=== PATIENT | female | born 2000 | race Caucasian/White ===

== ENCOUNTER → 2022-01-26 11:19 | Outpatient (CLI) | payer OTHER, SELFPAY ==
--- NOTE | ~2022-01-26 | CT_ITS ---
EXAMINATION: CTA brain DATE: 01/26/2022 11:56 INDICATION: Brain aneurysm follow-up. Chronic migraine headache. TECHNIQUE: Computed tomographic angiography (CTA) of the head was performed without and with 100 mL O mnipaque-350 intravenous contrast. Automated exposure control and iterative reconstruction technique were employed. The dose-length product was 1163.37 mGy-cm. Maximum intensity projection 3D reconstru ctions were created. Volume-rendered 3D reconstructions of the intracranial arteries were created by the technologist on a separate workstation. COMPARISON: None. FINDINGS: There is no intracranial hemorrhage, acute infarction, or abnormal intracranial mass lesion . The ventricles are normal in size. The orbits are normal. There is mild mucosal thickening in the p aranasal sinuses. 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 The mastoid air cells are normal. The v ertebral arteries are codominant. There is no significant stenosis of basilar artery or the posterior cerebral arteries. There is no significant stenosis of the intracranial internal carotid arteries or anterior or middle cerebral arteries. Anterior communicating artery is normal. IMPRESSION: 1. Normal brain. No aneurysm. Reviewed, dictated and finalized at [facility]. DPIPE TENDER
== END ==
DX: I67.1 Cerebral aneurysm, nonruptured (principal)
CPT/HCPCS: 70496; Q9967

== ENCOUNTER → 2023-01-02 11:15 | Outpatient (CLI) | payer OTHER, SELFPAY ==
--- NOTE | ~2023-01-02 | CT_ITS ---
EXAMINATION: CT sinus wo con DATE: 01/02/2023 11:28 INDICATION: Osteoma of the paranasal sinuses TECHNIQUE: Computed tomography (CT) of the paranasal sinuses was performed without contrast. Iterativ e reconstruction technique was employed. Exam dose: 279.12 mGy-cm total exam DLP. COMPARISON: None FINDINGS: There is leftward deviation of the nasal septum. There is prudence bullosa of the right middle nasal turbinate. There is symmetric moderately prominent soft tissue swelling of the nasal turbinates bilaterally. The ostiomeatal units are patent bilaterally. 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 Small probable mucus retention cyst along the lateral wall of the right maxillary sinus. The paranasa l sinuses otherwise are normally developed and aerated. The mastoid air cells are normally developed and aerated. Middle and inner ear apparatus appear normal bilaterally. 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 Reviewed, dictated and finalized at [facility].
== END ==
PROVIDERS: PCP Otolaryngology; Visit Provider Otolaryngology
DX: D16.4 Benign neoplasm of bones of skull and face (principal); J34.2 Deviated nasal septum
CPT/HCPCS: 70486

== ENCOUNTER 2023-01-14 18:52 | Emergency (ER) | payer OTHER, SELFPAY ==
[2023-01-14 19:00] VITALS: BP 133/71; PULSE 61; RESP 16; TEMP 37; O2SAT 99
--- NOTE | 2023-01-14 19:15 | ED.URI ---
HPI - URI/Sore Throat General Chief Complaint: Upper Respiratory Infection Stated Complaint: sore throat History of Present Illness HPI Narrative: 22-year-old female presented for complaint of sore throat since yesterday. States she saw white patches on tonsils today. Denies any associated symptoms. Not Taking anything for symptoms. Related Data Home Medications Medication Instructions Recorded Confirmed methylphenidate HCl 27 mg 27 mg PO QAM 09/13/21 01/14/23 tablet,extended release 24 hr escitalopram oxalate 5 mg tablet 5 mg PO DAILY 01/14/23 01/14/23 Allergies Allergy/AdvReac Type Severity Reaction Status Date / Time clavulanic acid Allergy Mild Rash Unverified 01/14/23 19:05 Penicillins Allergy Mild Rash Unverified 01/14/23 19:05 BETALACTAMASEIN Allergy Mild Rash Uncoded 01/14/23 19:05 Review of Systems Review of Systems: CONSTITUTIONAL: Denies body aches, fever, chills, or sweats. EYES: Denies visual changes, redness, or discharge. ENT: Reports sore throat Denies rhinorrhea, congestion, or otalgia. CARDIOVASCULAR: Denies chest pain, palpitations, or edema. RESPIRATORY: Denies dyspnea. GASTROINTESTINAL: Denies abdominal pain, nausea, vomiting, or diarrhea. SKIN: Denies rash, itching, or wounds. MUSCULOSKELETAL: Denies back pain, joint pain, or myalgia. NEUROLOGIC: Denies headache PMFSH Past Medical History Medical History Migraine Family History Family History Mother Hypertension Grandparent Cerebrovascular accident Lung cancer Bladder cancer Social History Social History Smoking status: Never smoker Second hand tobacco smoke exposure: No Alcohol intake: never Substance use: unknown Exam Narrative: GENERAL: well-appearing, no acute distress. EYES: conjunctivae clear ENT: Mucous membranes moist. TM pearly steele with normal light reflex bilaterally; no tragal tenderness. Oropharynx erythematous Tonsils enlarged 1+ with exudate. No drooling, no hoarseness, no trismus, uvula midline. No tripod positioning, hot potato voice, or soft palate swelling. NECK: Supple. No lymphadenopathy CHEST: Clear to auscultation, breath sounds equal. No respiratory distress, speaks in full sentences. HEART: Regular rate and rhythm. No murmur heard. SKIN: Warm, dry, no rash. NEURO: Alert and oriented x3. Course Course Emergency Course: Patient is aware of diagnosis, understands and agrees to treatment plan. Anticipatory guidance given. Patient agrees to follow-up as directed and is aware of reasons to seek care at the emergency department. Portions of this record may have been created with voice recognition software Level of Care: Express Care Visit Vital Signs Vital signs: Vital Signs Temperature 98.6 F 01/14/23 19:00 Pulse Rate 61 01/14/23 19:00 Respiratory Rate 16 01/14/23 19:00 Blood Pressure 133/71 01/14/23 19:00 Pulse Oximetry 99 01/14/23 19:00 Oxygen Delivery Room Air 01/14/23 19:00 Temperature 98.6 F 01/14/23 19:00 Pulse Rate 61 01/14/23 19:00 Respiratory Rate 16 01/14/23 19:00 Blood Pressure 133/71 01/14/23 19:00 Pulse Oximetry 99 01/14/23 19:00 Oxygen Delivery Room Air 01/14/23 19:00 MDM - URI/Sore Throat MDM Narrative Medical decision making narrative: Neg strep result reviewed with pt. Will treat based on PE and CC. PCN allergy. Advise supportive treatments. Patient is appropriate for outpatient treatment and follow-up. Differential Diagnosis Differential diagnosis: Likely upper respiratory infection, viral infection and pharyngitis Discharge Plan Discharge Clinical Impression: Pharyngitis Patient Disposition: Home, Self-Care Condition: Stable Instructions: Antibiotic Form, Strep Throat (ED) Additional Instructions: - Take t
== END 2023-01-14 19:33 | disposition home or self-care (01) ==
PROVIDERS: Emergency Provider Nurse Practitioner Family; PCP Physician Assistant
DX: J02.9 Acute pharyngitis, unspecified (principal)
CPT/HCPCS: 87081; 87880; 99213; G0463